=== PATIENT | female | born 1995 | race Caucasian/White ===

== ENCOUNTER 2017-11-19 08:28 | Emergency (ER) | payer OTHER ==
[~2017-11-19] VITALS: Ht 167.6 cm; Wt 49.9 kg
[2017-11-19] MEDS ORDERED: BACTRIM DS TAB1 EACH PO (14:22)
== END 2017-11-19 14:44 | disposition home or self-care (01) ==
LOC: ER 08:28
DX: R31.0 Gross hematuria (principal); N30.81 Other cystitis with hematuria

== ENCOUNTER 2020-06-06 16:40 | Emergency (ER) | payer OTHER ==
[~2020-06-06] VITALS: Ht 167.6 cm; Wt 71.7 kg
[~2020-06-06 16:40] MED LIST: BACTRIM DS TAB1 EACH PO
[2020-06-06] MEDS ORDERED: VIENVA-28 TABL1 EACH PO (17:01)
== END 2020-06-06 21:22 | disposition home or self-care (01) ==
LOC: ER 16:40
DX: K80.50 Calculus of bile duct without cholangitis or cholecystitis without obstruction (principal)